=== PATIENT | male | born 1975 | race African-American/Black ===

== ENCOUNTER 2021-02-07 12:39 | Inpatient (IN) | payer OTHER ==
[2021-02-07 13:43] LABS: Hemoglobin 14.2 g/dL (14.0-18.0); Mean Corpuscular HGB CONC 33.1 g/dL (32.0-36.0); Mean Corpuscular Hemoglobin 28.6 pg (27.0-31.0); Mean Corpuscular Volume 86.4 fL (78.0-98.0); Mean Platelet Volume 7.7 fL (7.4-10.4); Platelet Count 233 thou/uL (130-400); RBC Distribution Width 14.2 % (11.5-14.5); Red Blood Cell (RBC) Count 4.98 mill/uL (4.70-6.10); White Blood Cell (WBC) Count 19.9 thou/uL (4.8-10.8)
[2021-02-07] MEDS ORDERED: Cefepime 2 GM VIAL ONE (13:51)
[2021-02-07 14:06] LABS: Band 13 % (5-11); Lymphocytes 11 % (21-51); MDiff Complete? YES; Monocytes 13 % (0-10); Neutrophil 63 % (42-75); Platelet Morphology Comment Appears Adequate; RBC Morphology Normal
[2021-02-07 14:13] LABS: ALT (SGPT) 27 U/L (8-55); AST (SGOT) 43 U/L (5-34); Albumin 3.4 g/dL (3.5-5.0); Alkaline Phosphatase 93 U/L (40-110); Anion Gap 15 mmol/L (10-20); BUN (Urea Nitrogen) 26 mg/dL (8.9-20.6); Bilirubin, Total 1.5 mg/dL (0.2-1.2); Calc. Creatinine Clearance 0 mL/min (70-130); Calcium 9.5 mg/dL (7.8-10.44); Carbon Dioxide 23 mmol/L (22-29); Chloride 96 mmol/L (98-107); Globulin 4.4 g/dL (2.4-3.5); Glucose 121 mg/dL (70-105); Potassium 3.7 mmol/L (3.5-5.1); Protein, Total 7.8 g/dL (6.0-8.3); Sodium 130 mmol/L (136-145)
[2021-02-07] MEDS ORDERED: Vancomycin 1 GM/200 ML BAG ONE (14:31)
[2021-02-07] MEDS ORDERED: Ondansetron ODT 4 MG TAB PO PRN (15:07)
[2021-02-07 15:30] LABS: Bacteria/HPF None Seen HPF (None Seen); Bilirubin Negative (Negative); Blood, Urine Trace (Negative); Clarity Clear (Clear); Glucose, Urine (Dipstick) Normal (Negative); Ketone, Urine Negative (Negative); Leukocyte Negative Leu/uL (Negative); Nitrite Negative (Negative); Protein, Urine (Dipstick) Negative (Neg-Trace); RBC/HPF 0-3 HPF (0-3); Specific Gravity, Urine 1.017 (1.002-1.036); Squamous Epithelial None Seen HPF (0-3); Urobilinogen Normal mg/dL (Less than 2); WBC/HPF 0-3 HPF (0-3)
[2021-02-07 16:05] LABS: SARS-CoV-2 NAA Rapid Test Not Detected (NotDetected)
[2021-02-07] MEDS: Sodium Chloride 0.9% 1,000 ML IV SCH (17:45)
[2021-02-07] MEDS: Carvedilol 25 MG TAB PO SCH (20:46)
[2021-02-07] MEDS: Atorvastatin Calcium 40 MG TAB PO SCH (20:46)
[2021-02-07 21:17] VITALS: BMI 34.9
[2021-02-07] MEDS: Cefepime 1 GM in Sodium Chloride 0.9% 100 ML IVPB SCH (22:22)
[2021-02-08] MEDS: Vancomycin 1 GM in Premix Bag 1 BAG IVPB SCH ×2 (01:42→13:37)
[2021-02-08] MEDS: Sodium Chloride 0.9% 1,000 ML IV SCH (02:46)
[2021-02-08 07:52] LABS: Hemoglobin 13.4 g/dL (14.0-18.0); Mean Corpuscular HGB CONC 31.8 g/dL (32.0-36.0); Mean Corpuscular Hemoglobin 27.8 pg (27.0-31.0); Mean Corpuscular Volume 87.5 fL (78.0-98.0); Mean Platelet Volume 7.5 fL (7.4-10.4); Platelet Count 288 thou/uL (130-400); RBC Distribution Width 14.3 % (11.5-14.5); Red Blood Cell (RBC) Count 4.81 mill/uL (4.70-6.10); White Blood Cell (WBC) Count 21.2 thou/uL (4.8-10.8)
[2021-02-08 08:08] LABS: ALT (SGPT) 26 U/L (8-55); AST (SGOT) 38 U/L (5-34); Alkaline Phosphatase 95 U/L (40-110); Anion Gap 13 mmol/L (10-20); BUN (Urea Nitrogen) 16 mg/dL (8.9-20.6); Bilirubin, Total 1.2 mg/dL (0.2-1.2); CRP (Inflammatory) 26.22 mg/dL (= or < 0.5); Calc. Creatinine Clearance 112 mL/min (70-130); Calcium 8.5 mg/dL (7.8-10.44); Carbon Dioxide 27 mmol/L (22-29); Chloride 99 mmol/L (98-107); Globulin 3.6 g/dL (2.4-3.5); Glucose 99 mg/dL (70-105); Potassium 3.5 mmol/L (3.5-5.1); Protein, Total 6.6 g/dL (6.0-8.3); Sodium 135 mmol/L (136-145)
[2021-02-08] MEDS: Enoxaparin Sodium 40 MG/0.4 ML SYRINGE SC SCH (08:08)
[2021-02-08] MEDS: Carvedilol 25 MG TAB PO SCH ×2 (08:08→20:38)
[2021-02-08 08:34] LABS: Band 6 % (5-11); Lymphocytes 8 % (21-51); MDiff Complete? YES; Metamyelocyte 1 % (0-0); Monocytes 8 % (0-10); Neutrophil 76 % (42-75); Platelet Morphology Comment Appears Adequate; RBC Morphology Normal; Reactive Lymphocytes 1 % (0-10)
[2021-02-08] MEDS: Cefepime 1 GM in Sodium Chloride 0.9% 100 ML IVPB SCH (09:00)
[2021-02-08] MEDS: Cefepime 2 GM in Sodium Chloride 0.9% 100 ML IVPB SCH ×2 (09:23→21:22)
[2021-02-08] MEDS ORDERED: Furosemide 40 MG TAB PO SCH ×2 (13:10→13:30)
[2021-02-08] MEDS ORDERED: Allopurinol 300 MG TAB PO SCH ×2 (13:10→13:30)
[2021-02-08 15:33] LABS: SARS-CoV-2 PCR by NAA Not Detected (NotDetected)
[2021-02-08] MEDS: Atorvastatin Calcium 40 MG TAB PO SCH (20:38)
[2021-02-08] MEDS: NIFEdipine XL 60 MG TAB PO SCH (20:38)
[2021-02-08] MEDS: HYDROcodone/Acetaminophen 5/325 mg Tablet PO PRN (20:39)
[2021-02-09 01:35] LABS: Vancomycin, Trough 11.1 ug/mL
[2021-02-09] MEDS: Vancomycin 1.5 GRAM/300 ML BAG 1.5 GM in Premix Bag 1 BAG IVPB SCH ×2 (02:17→13:05)
[2021-02-09 07:43] LABS: Anion Gap 14 mmol/L (10-20); BUN (Urea Nitrogen) 13 mg/dL (8.9-20.6); Calc. Creatinine Clearance 114 mL/min (70-130); Calcium 9.3 mg/dL (7.8-10.44); Carbon Dioxide 29 mmol/L (22-29); Chloride 96 mmol/L (98-107); Glucose 100 mg/dL (70-105); Sodium 136 mmol/L (136-145)
[2021-02-09] MEDS: Carvedilol 25 MG TAB PO SCH ×2 (07:46→19:47)
[2021-02-09] MEDS: Allopurinol 300 MG TAB PO SCH (07:46)
[2021-02-09] MEDS: Furosemide 40 MG TAB PO SCH (07:46)
[2021-02-09] MEDS: Potassium Chloride 20 MEQ TAB PO SCH (07:46)
[2021-02-09] MEDS: Enoxaparin Sodium 40 MG/0.4 ML SYRINGE SC SCH (07:46)
[2021-02-09 07:58] LABS: Hemoglobin 13.7 g/dL (14.0-18.0); Mean Corpuscular HGB CONC 32.7 g/dL (32.0-36.0); Mean Corpuscular Hemoglobin 28.6 pg (27.0-31.0); Mean Corpuscular Volume 87.5 fL (78.0-98.0); RBC Distribution Width 14.2 % (11.5-14.5); Red Blood Cell (RBC) Count 4.79 mill/uL (4.70-6.10)
[2021-02-09 08:37] LABS: Band 2 % (5-11); Lymphocytes 5 % (21-51); MDiff Complete? YES; Mean Platelet Volume 7.4 fL (7.4-10.4); Monocytes 11 % (0-10); Neutrophil 82 % (42-75); Platelet Count 340 thou/uL (130-400); Platelet Morphology Comment Appears Adequate; White Blood Cell (WBC) Count 25.1 thou/uL (4.8-10.8)
[2021-02-09] MEDS: Cefepime 2 GM in Sodium Chloride 0.9% 100 ML IVPB SCH ×2 (09:14→21:20)
[2021-02-09] MEDS ORDERED: Potassium Chloride 20 MEQ TAB PO SCH (13:30)
[2021-02-09] MEDS: Atorvastatin Calcium 40 MG TAB PO SCH (19:48)
[2021-02-09] MEDS: NIFEdipine XL 60 MG TAB PO SCH (19:48)
[2021-02-09] MEDS: Acetaminophen 325 MG TAB PO PRN (19:55)
[2021-02-10] MEDS: Vancomycin 1.5 GRAM/300 ML BAG 1.5 GM in Premix Bag 1 BAG IVPB SCH ×2 (02:20→13:48)
[2021-02-10] MEDS ORDERED: cloNIDine 0.2 MG TAB PO SCH (03:00)
[2021-02-10 07:09] LABS: Anion Gap 14 mmol/L (10-20); BUN (Urea Nitrogen) 13 mg/dL (8.9-20.6); Calc. Creatinine Clearance 111 mL/min (70-130); Calcium 9.3 mg/dL (7.8-10.44); Carbon Dioxide 30 mmol/L (22-29); Chloride 94 mmol/L (98-107); Glucose 101 mg/dL (70-105); Potassium 3.5 mmol/L (3.5-5.1); Sodium 134 mmol/L (136-145)
[2021-02-10 07:59] LABS: #Basophils 0.2 thou/uL (0.0-0.2); #Lymphocytes 2.6 thou/uL (1.20-3.40); #Monocytes 1.3 thou/uL (0.11-0.59); #Neutrophils 16.2 thou/uL (1.40-6.50); %Basophils 0.8 % (0.0-1.0); %Eosinophils 0.1 % (0.0-10.0); %Lymphocytes 12.6 % (21.0-51.0); %Monocytes 6.5 % (0.0-10.0); %Neutrophils 79.9 % (42.0-75.0); Hemoglobin 13.3 g/dL (14.0-18.0); Mean Corpuscular HGB CONC 31.9 g/dL (32.0-36.0); Mean Corpuscular Hemoglobin 28.3 pg (27.0-31.0); Mean Corpuscular Volume 88.9 fL (78.0-98.0); Mean Platelet Volume 7.4 fL (7.4-10.4); Platelet Count 383 thou/uL (130-400); RBC Distribution Width 14.3 % (11.5-14.5); White Blood Cell (WBC) Count 20.3 thou/uL (4.8-10.8)
[2021-02-10] MEDS: Enoxaparin Sodium 40 MG/0.4 ML SYRINGE SC SCH (08:11)
[2021-02-10] MEDS: cloNIDine 0.2 MG TAB PO SCH ×2 (08:12→20:29)
[2021-02-10] MEDS: Acetaminophen 325 MG TAB PO PRN (08:12)
[2021-02-10] MEDS: Potassium Chloride 20 MEQ TAB PO SCH (08:13)
[2021-02-10] MEDS: Allopurinol 300 MG TAB PO SCH (08:13)
[2021-02-10] MEDS: Carvedilol 25 MG TAB PO SCH ×2 (08:13→20:29)
[2021-02-10] MEDS: Furosemide 40 MG TAB PO SCH (08:13)
[2021-02-10] MEDS: Cefepime 2 GM in Sodium Chloride 0.9% 100 ML IVPB SCH ×2 (09:49→23:00)
[2021-02-10 13:41] LABS: Vancomycin, Trough 19.6 ug/mL
[2021-02-10] MEDS: NIFEdipine XL 60 MG TAB PO SCH (20:29)
[2021-02-10] MEDS: Atorvastatin Calcium 40 MG TAB PO SCH (20:29)
[2021-02-10] MEDS ORDERED: NIFEdipine XL 30 MG TAB PO SCH (23:59)
[2021-02-11] MEDS: Vancomycin 1.5 GRAM/300 ML BAG 1.5 GM in Premix Bag 1 BAG IVPB SCH ×2 (01:15→18:32)
[2021-02-11 06:35] LABS: #Basophils 0.2 thou/uL (0.0-0.2); #Eosinphils 0.1 thou/uL (0.0-0.7); #Lymphocytes 2.3 thou/uL (1.20-3.40); #Neutrophils 11.4 thou/uL (1.40-6.50); %Basophils 1.1 % (0.0-1.0); %Eosinophils 0.4 % (0.0-10.0); %Lymphocytes 15.5 % (21.0-51.0); %Neutrophils 76.1 % (42.0-75.0); Hemoglobin 13.3 g/dL (14.0-18.0); Mean Corpuscular HGB CONC 32.2 g/dL (32.0-36.0); Mean Corpuscular Hemoglobin 28.2 pg (27.0-31.0); Mean Corpuscular Volume 87.7 fL (78.0-98.0); Mean Platelet Volume 7.3 fL (7.4-10.4); Platelet Count 405 thou/uL (130-400); RBC Distribution Width 14.3 % (11.5-14.5); Red Blood Cell (RBC) Count 4.71 mill/uL (4.70-6.10)
[2021-02-11 06:52] LABS: Anion Gap 13 mmol/L (10-20); BUN (Urea Nitrogen) 13 mg/dL (8.9-20.6); Calc. Creatinine Clearance 120 mL/min (70-130); Calcium 9.1 mg/dL (7.8-10.44); Carbon Dioxide 30 mmol/L (22-29); Chloride 94 mmol/L (98-107); Glucose 98 mg/dL (70-105); Potassium 3.1 mmol/L (3.5-5.1); Sodium 134 mmol/L (136-145)
[2021-02-11] MEDS: Enoxaparin Sodium 40 MG/0.4 ML SYRINGE SC SCH (08:53)
[2021-02-11] MEDS: Potassium Chloride 20 MEQ TAB PO SCH (08:53)
[2021-02-11] MEDS: Carvedilol 25 MG TAB PO SCH ×2 (08:53→20:47)
[2021-02-11] MEDS: Furosemide 40 MG TAB PO SCH (08:53)
[2021-02-11] MEDS: cloNIDine 0.2 MG TAB PO SCH ×2 (08:54→20:47)
[2021-02-11] MEDS: Cefepime 2 GM in Sodium Chloride 0.9% 100 ML IVPB SCH (08:55)
[2021-02-11] MEDS: Allopurinol 300 MG TAB PO SCH (08:55)
[2021-02-11] MEDS: Atorvastatin Calcium 40 MG TAB PO SCH ×2 (20:46→20:47)
[2021-02-11] MEDS: NIFEdipine XL 90 MG TAB PO SCH (20:47)
[2021-02-11] MEDS: CEFAZOLIN 2 GM, Admixture Fee 1 EACH in Sodium Chloride 0.9% 100 ML IVPB SCH (22:31)
[2021-02-12] MEDS: CEFAZOLIN 2 GM, Admixture Fee 1 EACH in Sodium Chloride 0.9% 100 ML IVPB SCH ×2 (05:20→14:40)
[2021-02-12 07:17] LABS: #Basophils 0.2 thou/uL (0.0-0.2); #Eosinphils 0.1 thou/uL (0.0-0.7); %Basophils 1.5 % (0.0-1.0); %Eosinophils 0.6 % (0.0-10.0); %Lymphocytes 16.4 % (21.0-51.0); %Monocytes 8.4 % (0.0-10.0); %Neutrophils 73.2 % (42.0-75.0); Hemoglobin 13.4 g/dL (14.0-18.0); Mean Corpuscular HGB CONC 33.3 g/dL (32.0-36.0); Mean Corpuscular Hemoglobin 29.1 pg (27.0-31.0); Mean Corpuscular Volume 87.4 fL (78.0-98.0); Mean Platelet Volume 7.2 fL (7.4-10.4); Platelet Count 427 thou/uL (130-400); RBC Distribution Width 14.3 % (11.5-14.5); Red Blood Cell (RBC) Count 4.61 mill/uL (4.70-6.10); White Blood Cell (WBC) Count 12.3 thou/uL (4.8-10.8)
[2021-02-12 07:37] LABS: Anion Gap 13 mmol/L (10-20); BUN (Urea Nitrogen) 15 mg/dL (8.9-20.6); Calc. Creatinine Clearance 116 mL/min (70-130); Calcium 9.2 mg/dL (7.8-10.44); Carbon Dioxide 28 mmol/L (22-29); Chloride 96 mmol/L (98-107); Glucose 97 mg/dL (70-105); Potassium 3.4 mmol/L (3.5-5.1); Sodium 134 mmol/L (136-145)
[2021-02-12] MEDS: Carvedilol 25 MG TAB PO SCH ×2 (08:39→22:26)
[2021-02-12] MEDS: cloNIDine 0.2 MG TAB PO SCH ×2 (08:39→22:26)
[2021-02-12] MEDS: Furosemide 40 MG TAB PO SCH (08:39)
[2021-02-12] MEDS: Allopurinol 300 MG TAB PO SCH (08:39)
[2021-02-12] MEDS: Potassium Chloride 20 MEQ TAB PO SCH (08:40)
[2021-02-12] MEDS: Enoxaparin Sodium 40 MG/0.4 ML SYRINGE SC SCH (08:40)
[2021-02-12] MEDS: NIFEdipine XL 90 MG TAB PO SCH (22:26)
[2021-02-13] MEDS: ceFAZolin Sodium/D5W 2 GM in Premix Bag 1 BAG IVPB SCH ×4 (00:05→21:01)
[2021-02-13] MEDS: HYDROcodone/Acetaminophen 5/325 mg Tablet PO PRN ×3 (01:11→16:58)
[2021-02-13 07:03] LABS: #Eosinphils 0.1 thou/uL (0.0-0.7); #Lymphocytes 2.5 thou/uL (1.20-3.40); #Monocytes 1.3 thou/uL (0.11-0.59); #Neutrophils 8.1 thou/uL (1.40-6.50); %Basophils 0.1 % (0.0-1.0); %Eosinophils 0.9 % (0.0-10.0); %Lymphocytes 20.6 % (21.0-51.0); %Monocytes 10.9 % (0.0-10.0); %Neutrophils 67.5 % (42.0-75.0); Hemoglobin 12.3 g/dL (14.0-18.0); Mean Corpuscular Hemoglobin 28.2 pg (27.0-31.0); Mean Corpuscular Volume 88.2 fL (78.0-98.0); Mean Platelet Volume 7.2 fL (7.4-10.4); Platelet Count 440 thou/uL (130-400); RBC Distribution Width 14.2 % (11.5-14.5); Red Blood Cell (RBC) Count 4.36 mill/uL (4.70-6.10); White Blood Cell (WBC) Count 11.9 thou/uL (4.8-10.8)
[2021-02-13 07:17] LABS: Anion Gap 10 mmol/L (10-20); BUN (Urea Nitrogen) 16 mg/dL (8.9-20.6); Calc. Creatinine Clearance 112 mL/min (70-130); Carbon Dioxide 30 mmol/L (22-29); Chloride 94 mmol/L (98-107); Glucose 99 mg/dL (70-105); Potassium 3.2 mmol/L (3.5-5.1); Sodium 131 mmol/L (136-145)
[2021-02-13] MEDS: Allopurinol 300 MG TAB PO SCH (08:12)
[2021-02-13] MEDS: Enoxaparin Sodium 40 MG/0.4 ML SYRINGE SC SCH (08:12)
[2021-02-13] MEDS: Carvedilol 25 MG TAB PO SCH ×2 (08:12→21:00)
[2021-02-13] MEDS: Furosemide 40 MG TAB PO SCH (08:12)
[2021-02-13] MEDS: cloNIDine 0.2 MG TAB PO SCH ×2 (08:12→21:00)
[2021-02-13] MEDS: Potassium Chloride 20 MEQ TAB PO SCH (08:12)
[2021-02-13] MEDS ORDERED: ceFAZolin Sodium/D5W 2 GM in Premix Bag 1 BAG IVPB SCH (14:00)
[2021-02-13] MEDS: NIFEdipine XL 90 MG TAB PO SCH (21:00)
[2021-02-13] MEDS: Atorvastatin Calcium 40 MG TAB PO SCH (21:01)
[2021-02-14] MEDS: HYDROcodone/Acetaminophen 5/325 mg Tablet PO PRN (05:56)
[2021-02-14] MEDS: ceFAZolin Sodium/D5W 2 GM in Premix Bag 1 BAG IVPB SCH (05:57)
[2021-02-14 06:33] LABS: #Basophils 0.1 thou/uL (0.0-0.2); #Eosinphils 0.1 thou/uL (0.0-0.7); #Lymphocytes 2.4 thou/uL (1.20-3.40); #Monocytes 1.2 thou/uL (0.11-0.59); #Neutrophils 7.5 thou/uL (1.40-6.50); %Basophils 0.9 % (0.0-1.0); %Eosinophils 0.8 % (0.0-10.0); %Lymphocytes 21.2 % (21.0-51.0); %Monocytes 10.6 % (0.0-10.0); %Neutrophils 66.6 % (42.0-75.0); Hemoglobin 12.5 g/dL (14.0-18.0); Mean Corpuscular HGB CONC 32.6 g/dL (32.0-36.0); Mean Corpuscular Hemoglobin 28.8 pg (27.0-31.0); Mean Corpuscular Volume 88.4 fL (78.0-98.0); Platelet Count 481 thou/uL (130-400); RBC Distribution Width 14.3 % (11.5-14.5); Red Blood Cell (RBC) Count 4.35 mill/uL (4.70-6.10); White Blood Cell (WBC) Count 11.3 thou/uL (4.8-10.8)
[2021-02-14 06:55] LABS: Anion Gap 13 mmol/L (10-20); BUN (Urea Nitrogen) 15 mg/dL (8.9-20.6); Calc. Creatinine Clearance 123 mL/min (70-130); Calcium 9.5 mg/dL (7.8-10.44); Carbon Dioxide 26 mmol/L (22-29); Chloride 96 mmol/L (98-107); Glucose 89 mg/dL (70-105); Potassium 3.5 mmol/L (3.5-5.1); Sodium 131 mmol/L (136-145)
[2021-02-14] MEDS: cloNIDine 0.2 MG TAB PO SCH (08:12)
[2021-02-14] MEDS: Enoxaparin Sodium 40 MG/0.4 ML SYRINGE SC SCH (08:13)
[2021-02-14] MEDS: Allopurinol 300 MG TAB PO SCH (08:13)
[2021-02-14] MEDS: Carvedilol 25 MG TAB PO SCH (08:13)
[2021-02-14] MEDS: Furosemide 40 MG TAB PO SCH (08:13)
[2021-02-14] MEDS: Potassium Chloride 20 MEQ TAB PO SCH (08:13)
[2021-02-14 12:03] VITALS: BP 148/96; TEMP 98.1
== END 2021-02-14 12:40 | disposition home or self-care (01) | DRG 872 ==
LOC: SUATTDRO 12:39 → ERS 12:39 → T4-A 14:56
PROVIDERS: ADMIT Internal Medicine; ATTEND Internal Medicine
PROC: 0H9MXZZ Drainage of Right Foot Skin, External Approach (ICD-10-PCS; principal; 2021-02-12)
DX: A40.8 Other streptococcal sepsis (principal); L03.115 Cellulitis of right lower limb; N17.9 Acute kidney failure, unspecified; I50.22 Chronic systolic (congestive) heart failure; I13.0 Hypertensive heart and chronic kidney disease with heart failure and stage 1 through stage 4 chronic kidney disease, or unspecified chronic kidney disease; C41.9 Malignant neoplasm of bone and articular cartilage, unspecified; M72.8 Other fibroblastic disorders; Z20.822 Contact with and (suspected) exposure to COVID-19; I87.8 Other specified disorders of veins; N18.30 Chronic kidney disease, stage 3 unspecified; E78.5 Hyperlipidemia, unspecified; E66.9 Obesity, unspecified; M1A.0710 Idiopathic chronic gout, right ankle and foot, without tophus (tophi); Z88.1 Allergy status to other antibiotic agents; Z68.34 Body mass index [BMI] 34.0-34.9, adult; Z79.899 Other long term (current) drug therapy; Z89.612 Acquired absence of left leg above knee; Z85.830 Personal history of malignant neoplasm of bone
CPT/HCPCS: 36415; 71250; 80048; 80053; 80202; 81003; 81015; 83605; 83880; 84145; 85025; 85652; 86140; 87040; 87070; 87077; 87205; 89060; 93306; 96365; 96367; J0690; J0692; J1650; J3370; J3490; J7050; U0002; U0003; U0005